=== PATIENT | female | born 1955 ===

== ENCOUNTER 2022-07-21 10:55 | Day surgery (SDC) | payer MEDICARE ==
[~2022-07-21 10:55] MED LIST: Metoclopramide 10 MG/2 ML SDV IV PRN
[2022-07-21] MEDS: Sodium Chloride 0.9% 1,000 ML IV SCH (11:19)
[2022-07-21] MEDS ORDERED: Propofol 1,000 MG/100 ML SDV ONE (14:00)
[2022-07-21 14:16] VITALS: BP 144/80; PULSE 77
== END 2022-07-21 15:25 | disposition home or self-care (01) ==
LOC: LB.SDS 10:55
PROVIDERS: ATTEND Surgery
DX: K57.30 Diverticulosis of large intestine without perforation or abscess without bleeding (principal); I10 Essential (primary) hypertension; F32.A Depression, unspecified; E03.9 Hypothyroidism, unspecified; Z79.899 Other long term (current) drug therapy
CPT/HCPCS: 45378; J2704; J7030